=== PATIENT | female | born 1970 | race Caucasian/White ===

== ENCOUNTER 2022-06-22 10:33 | Emergency (ER) | payer SELFPAY ==
[~2022-06-22] VITALS: Ht 165.1 cm; Wt 57.0 kg
[2022-06-22 10:55] VITALS: BP 112/74
== END 2022-06-22 11:55 | disposition home or self-care (01) ==
LOC: ER 11:01
DX: Z00.8 Encounter for other general examination (principal); Z59.41 Food insecurity; Z88.5 Allergy status to narcotic agent
CPT/HCPCS: 99283